=== PATIENT | male | born 1965 | race Caucasian/White ===

== ENCOUNTER 2018-01-24 23:58 | Emergency (ER) | payer MEDICARE, MEDICAID ==
[~2018-01-24] VITALS: Ht 172.7 cm; Wt 62.7 kg
[~2018-01-24 23:58] MED LIST: ATEN-169 PO; BUSP10TA11 PO; CITA-278 PO; HYDR-2382 PO; METH-603 PO; ZOC40T PO
[2018-01-25 01:06] LABS: ALANINE AMINOTRANSFERASE 60 U/L (12-78); ALBUMIN 3.9 G/DL (3.4-5.0); ALKALINE PHOSPHATASE 100 IU/L (46-116); ANION GAP 20 (8-16); ASPARTATE AMINO TRANSFERASE 42 U/L (10-37); BILIRUBIN,TOTAL 0.4 MG/DL (0.1-1.0); BLOOD UREA NITROGEN 8 MG/DL (7-18); BUN/CREATININE RATIO 7.3 (5.4-32.0); CALCIUM 8.8 MG/DL (8.5-10.1); CHLORIDE 103 MMOL/L (99-107); CREATININE 1.09 MG/DL (0.60-1.10); GLUCOSE 116 MG/DL (70-104); POTASSIUM 3.3 MMOL/L (3.5-5.1); SODIUM 144 MMOL/L (135-145); TOTAL PROTEIN 7.7 G/DL (6.4-8.2); eGFR 70 ML/MIN
[2018-01-25 01:14] LABS: ETHANOL 0.275 GM/DL (0.0-0.010)
[2018-01-25 01:16] LABS: BASOPHILS % (AUTO) 0.9 % (0-1); EOSINOPHILS % (AUTO) 0.3 % (0-6); HEMOGLOBIN 15.8 g/dl (14.0-17.9); LYMPHOCYTES % (AUTO) 39.7 % (21-51); MEAN CORPUSCULAR HGB CONC 32.8 % (33.0-36.5); MEAN CORPUSCULAR VOLUME 91.4 FL (78-98); MONOCYTES % (AUTO) 9.4 % (2-12); NEUTROPHILS % (AUTO) 49.7 % (42-75); PLATELET COUNT 314 X10'3 (140-440); RED BLOOD COUNT 5.25 X10'6 (4.70-6.10); RED CELL DISTRIBUTION WIDTH 12.5 % (11.5-14.5); WHITE BLOOD COUNT 8.1 X10'3 (4.5-11.0)
[2018-01-25 01:17] LABS: BASOPHILS # (AUTO) 0.1 X10'3 (0-0.2); LYMPHOCYTES # (AUTO) 3.2 X10'3 (1.1-4.8); MONOCYTES # (AUTO) 0.8 X10'3 (0-0.9)
[2018-01-25] MEDS ORDERED: potassium Cl 20 mEq SR tablet PO STA (01:26)
[2018-01-25 01:29] LABS: ACETAMINOPHEN < 2.0 UG/ML (10-30)
[2018-01-25 02:59] LABS: CLARITY,URINE CLEAR (Clear); COLOR,URINE YELLOW (Yellow); GLUCOSE, URINE NEGATIVE (Neg); KETONES,URINE 15 mg/dl (Neg); LEUKOCYTE ESTERASE ,URINE NEGATIVE (Neg); NITRITES, URINE NEGATIVE (Neg); OCCULT BLOOD,URINE MODERATE (Neg); PROTEIN,URINE 100 mg/dl (Neg); UA COLLECTION TYPE VOIDED; UROBILINOGEN,URINE 0.2 E.U/dL (0.2-1.0)
[2018-01-25 03:04] LABS: URINE AMPHETAMINE SCREEN NEGATIVE (Neg); URINE BARBITUATE SCREEN NEGATIVE (Neg); URINE BENZODIAZEPINES SCREEN POSITIVE (Neg); URINE CANNABINOID SCREEN NEGATIVE (Neg); URINE COCAINE SCREEN NEGATIVE (Neg); URINE METHADONE SCREEN NEGATIVE (Neg); URINE OPIATE SCREEN NEGATIVE (Neg); URINE PHENCYCLIDINE SCREEN NEGATIVE (Neg)
[2018-01-25] MEDS: LORazepam 1 MG tablet PO PRN ×3 (03:05→20:41)
[2018-01-25 03:09] LABS: BACTERIA,URINE FEW /HPF (Neg); MUCUS STRANDS MANY /LPF (Neg); SQUAMOUS EPITHELIAL CELL,UR FEW /LPF (FEW); WBC,URINE 0-4 /HPF (0-4)
[2018-01-25 03:10] LABS: FINE GRANULAR CAST 0-3 /LPF (NEGATIVE)
[2018-01-25] MEDS: ondansetron 4mg rapidly disintigrating tab PO PRN ×2 (06:51→10:56)
[2018-01-25] MEDS: gabapentin 300mg capsule PO SCH ×3 (07:21→20:41)
[2018-01-25] MEDS: citalopram 20mg tablet PO SCH (07:22)
[2018-01-25] MEDS: cloNIDine 0.1 mg tablet PO PRN ×2 (07:23→20:45)
[2018-01-25] MEDS: ziprasidone 20mg capsule PO PRN (11:09)
[2018-01-25 23:14] LABS: CLARITY,URINE CLEAR (Clear); COLOR,URINE YELLOW (Yellow); GLUCOSE, URINE NEGATIVE (Neg); KETONES,URINE TRACE mg/dl (Neg); LEUKOCYTE ESTERASE ,URINE NEGATIVE (Neg); NITRITES, URINE NEGATIVE (Neg); OCCULT BLOOD,URINE TRACE-LYSED (Neg); PROTEIN,URINE 30 mg/dl (Neg); UA COLLECTION TYPE FOLEY CATH; UROBILINOGEN,URINE 0.2 E.U/dL (0.2-1.0)
[2018-01-25 23:20] LABS: BACTERIA,URINE NONE SEEN /HPF (Neg); RBC,URINE 0-2 /HPF (0-2); SQUAMOUS EPITHELIAL CELL,UR NONE SEEN /LPF (FEW)
[2018-01-25 23:21] LABS: MUCUS STRANDS FEW /LPF (Neg); WBC,URINE 0-4 /HPF (0-4)
[2018-01-25] MEDS ORDERED: traZODone 50mg tablet PO SCH (23:45)
[2018-01-26] MEDS: LORazepam 1 MG tablet PO PRN ×3 (08:15→18:47)
[2018-01-26] MEDS: citalopram 20mg tablet PO SCH (08:17)
[2018-01-26] MEDS: gabapentin 300mg capsule PO SCH ×3 (08:17→21:00)
[2018-01-26] MEDS ORDERED: acetaminophen 325mg tablet PO PRN (09:25)
[2018-01-26] MEDS: ziprasidone 20mg capsule PO PRN ×2 (09:38→22:38)
[2018-01-26] MEDS: ibuprofen tablet 400 MG TABLET PO PRN ×2 (09:39→22:39)
[2018-01-26] MEDS: cloNIDine 0.1 mg tablet PO PRN (13:54)
[2018-01-26] MEDS ORDERED: LIDOcaine 2% 10ml TOPICAL JELLY (Urojet) MM ONE (18:55)
[2018-01-26] MEDS ORDERED: LORazepam 2 mg/ml vial IM ONE (18:55)
[2018-01-26] MEDS: traZODone 50mg tablet PO SCH (19:47)
[2018-01-27] MEDS: citalopram 20mg tablet PO SCH (07:30)
[2018-01-27] MEDS: LORazepam 1 MG tablet PO PRN ×3 (07:30→18:01)
[2018-01-27] MEDS: gabapentin 300mg capsule PO SCH ×3 (07:30→20:08)
[2018-01-27] MEDS: ibuprofen tablet 400 MG TABLET PO PRN (09:01)
[2018-01-27] MEDS ORDERED: tamsulosin 0.4mg capsule PO STA (11:29)
[2018-01-27] MEDS: traZODone 50mg tablet PO SCH (20:08)
[2018-01-27] MEDS ORDERED: tamsulosin 0.4mg capsule PO SCH (21:00)
[2018-01-27] MEDS: ziprasidone 20mg capsule PO PRN (21:41)
[2018-01-28] MEDS: gabapentin 300mg capsule PO SCH ×2 (07:59→12:42)
[2018-01-28] MEDS: LORazepam 1 MG tablet PO PRN ×3 (07:59→17:40)
[2018-01-28] MEDS: citalopram 20mg tablet PO SCH (07:59)
[2018-01-28] MEDS ORDERED: LIDOcaine 2% 10ml TOPICAL JELLY (Urojet) MM ONE (14:50)
[2018-01-28 18:22] VITALS: BP 122/81
[2018-01-28] MEDS ORDERED: LORA-269 PO (20:35)
[2018-01-28] MEDS ORDERED: TRAZ-219 PO (20:35)
[2018-01-28] MEDS ORDERED: FLO0.4C PO (20:35)
[2018-01-28] MEDS ORDERED: CLON-529 PO (20:35)
[2018-01-28] MEDS ORDERED: GABA-532 PO (20:35)
[2018-01-29 13:45] LABS: % FREE PSA 37.1 % (.); PSA, FREE 0.26 ng/mL
== END 2018-01-28 18:25 ==
LOC: ER 01-25
DX: R45.851 Suicidal ideations (principal); F10.129 Alcohol abuse with intoxication, unspecified; F32.9 Major depressive disorder, single episode, unspecified; R33.9 Retention of urine, unspecified; G89.29 Other chronic pain; Z87.891 Personal history of nicotine dependence; Z98.890 Other specified postprocedural states; Z79.899 Other long term (current) drug therapy; Y90.9 Presence of alcohol in blood, level not specified
CPT/HCPCS: 36415; 51702; 80053; 80305; 80320; 80329; 81001; 84153; 84154; 84443; 85025; 96372; 99285; A4353; J2060; A4357

== ENCOUNTER 2018-01-28 16:51 | Inpatient (IN) | payer MEDICARE, MEDICAID ==
[~2018-01-28] VITALS: Ht 172.7 cm; Wt 82.7 kg
[~2018-01-28 16:51] MED LIST changes: -ATEN-169 PO; -BUSP10TA11 PO; -HYDR-2382 PO; -METH-603 PO; -ZOC40T PO
[2018-01-28 19:40] VITALS: BP 117/88
[2018-01-28] MEDS ORDERED: LORA-269 PO (20:35)
[2018-01-28] MEDS ORDERED: GABA-532 PO (20:35)
[2018-01-28] MEDS ORDERED: TRAZ-219 PO (20:35)
[2018-01-28] MEDS ORDERED: FLO0.4C PO (20:35)
[2018-01-28] MEDS ORDERED: CLON-529 PO (20:35)
[2018-01-28] MEDS ORDERED: cloNIDine 0.1 mg tablet PO PRN (20:45)
[2018-01-28] MEDS ORDERED: traZODone 50mg tablet PO SCH (21:00)
[2018-01-28] MEDS: gabapentin 300mg capsule PO SCH (21:20)
[2018-01-29] MEDS ORDERED: acetaminophen 325mg tablet PO PRN ×2 (01:10)
[2018-01-29] MEDS ORDERED: mag hydrox/Alum hydrox/simeth 30ml oral suspension PO PRN (01:10)
[2018-01-29] MEDS ORDERED: magnesium hydroxide 30ml (MOM) UD suspension PO PRN (01:10)
[2018-01-29] MEDS: LORazepam 1 MG tablet PO PRN ×2 (06:49→17:01)
[2018-01-29 08:00] VITALS: BP 109/76
[2018-01-29] MEDS ORDERED: citalopram 20mg tablet PO SCH (08:00)
[2018-01-29] MEDS: tamsulosin 0.4mg capsule PO SCH (08:42)
[2018-01-29] MEDS: gabapentin 300mg capsule PO SCH ×3 (08:42→20:28)
[2018-01-29 10:08] LABS: CHOL/HDL RATIO 4.7 (0.00-4.99); CHOLESTEROL 203 MG/DL (0-200); HDL CHOLESTEROL 43 MG/DL (35-60); LDL CHOLESTEROL 129 MG/DL (50-100); TRIGLYCERIDES 204 MG/DL (20-135)
[2018-01-29 10:20] LABS: HEMOGLOBIN A1C 5.5 % (4.5-6.2)
[2018-01-29] MEDS: hydrOXYzine 25 MG tablet PO PRN (14:15)
[2018-01-29 19:44] VITALS: BP 121/77
[2018-01-29] MEDS: HYDROcodone/acetaminophen 5mg/325mg tablet PO PRN (20:29)
[2018-01-29] MEDS ORDERED: quetiapine 100mg tablet PO SCH (21:00)
[2018-01-30] MEDS: tamsulosin 0.4mg capsule PO SCH (07:33)
[2018-01-30] MEDS: gabapentin 300mg capsule PO SCH ×3 (07:33→21:48)
[2018-01-30] MEDS: LORazepam 1 MG tablet PO PRN ×2 (07:33→17:22)
[2018-01-30] MEDS: atorvastatin 20mg tablet PO SCH (07:33)
[2018-01-30] MEDS ORDERED: venlafaxine XR 37.5mg cap (Q24H) PO SCH (08:00)
[2018-01-30 08:06] VITALS: BP 132/82
[2018-01-30 08:42] LABS: ALBUMIN 3.5 G/DL (3.4-5.0); ANION GAP 7 (8-16); BLOOD UREA NITROGEN 9 MG/DL (7-18); BUN/CREATININE RATIO 8.9 (5.4-32.0); CALCIUM 9.1 MG/DL (8.5-10.1); CHLORIDE 104 MMOL/L (99-107); CREATININE 1.01 MG/DL (0.60-1.10); GLUCOSE 97 MG/DL (70-104); POTASSIUM 4.5 MMOL/L (3.5-5.1); SODIUM 144 MMOL/L (135-145); TOTAL CARBON DIOXIDE 33.1 MMOL/L (24-32); eGFR 77 ML/MIN
[2018-01-30] MEDS: HYDROcodone/acetaminophen 5mg/325mg tablet PO PRN (09:34)
[2018-01-30] MEDS: hydrOXYzine 25 MG tablet PO PRN (10:52)
[2018-01-30 19:00] VITALS: BP 126/72
[2018-01-30] MEDS ORDERED: HYDROcodone/acetaminophen 5mg/325mg tablet PO PRN (19:55)
[2018-01-30] MEDS: HYDROcodone/acetaminophen 10/325mg tab PO PRN (20:08)
[2018-01-30] MEDS ORDERED: QUEtiapine 25mg tablet PO SCH (21:00)
[2018-01-31] MEDS: atorvastatin 20mg tablet PO SCH (07:51)
[2018-01-31] MEDS: tamsulosin 0.4mg capsule PO SCH (07:51)
[2018-01-31] MEDS: venlafaxine XR 75mg capsule (Q24H) PO SCH (07:51)
[2018-01-31] MEDS: LORazepam 1 MG tablet PO PRN (07:52)
[2018-01-31] MEDS: gabapentin 300mg capsule PO SCH ×3 (07:52→20:55)
[2018-01-31 08:20] VITALS: BP 152/84
[2018-01-31] MEDS: HYDROcodone/acetaminophen 10/325mg tab PO PRN ×2 (10:36→19:56)
[2018-01-31] MEDS: hydrOXYzine 25 MG tablet PO PRN ×2 (12:35→20:56)
[2018-01-31 19:00] VITALS: BP 100/61
[2018-01-31] MEDS: QUEtiapine 25mg tablet PO SCH (20:55)
[2018-01-31] MEDS: traZODone 50mg tablet PO PRN (20:56)
[2018-02-01] MEDS: venlafaxine XR 75mg capsule (Q24H) PO SCH (07:32)
[2018-02-01] MEDS: gabapentin 300mg capsule PO SCH ×3 (07:32→21:22)
[2018-02-01] MEDS: atorvastatin 20mg tablet PO SCH (07:32)
[2018-02-01] MEDS: tamsulosin 0.4mg capsule PO SCH (07:32)
[2018-02-01] MEDS: LORazepam 1 MG tablet PO PRN (07:33)
[2018-02-01 07:37] VITALS: BP 118/73
[2018-02-01] MEDS: HYDROcodone/acetaminophen 10/325mg tab PO PRN ×3 (10:35→22:22)
[2018-02-01] MEDS: hydrOXYzine 25 MG tablet PO PRN ×2 (10:35→21:22)
[2018-02-01 19:00] VITALS: BP 99/72
[2018-02-01] MEDS: traZODone 50mg tablet PO PRN (21:22)
[2018-02-01] MEDS: QUEtiapine 25mg tablet PO SCH (21:22)
[2018-02-02] MEDS: LORazepam 1 MG tablet PO PRN ×2 (07:30→17:13)
[2018-02-02] MEDS: HYDROcodone/acetaminophen 10/325mg tab PO PRN ×3 (07:31→20:06)
[2018-02-02] MEDS: atorvastatin 20mg tablet PO SCH (07:31)
[2018-02-02] MEDS: tamsulosin 0.4mg capsule PO SCH (07:31)
[2018-02-02] MEDS: venlafaxine XR 75mg capsule (Q24H) PO SCH (07:31)
[2018-02-02] MEDS: gabapentin 300mg capsule PO SCH ×3 (07:31→21:44)
[2018-02-02 08:00] VITALS: BP 109/75
[2018-02-02] MEDS: hydrOXYzine 25 MG tablet PO PRN ×2 (12:33→21:45)
[2018-02-02 19:00] VITALS: BP 102/76
[2018-02-02] MEDS: QUEtiapine 25mg tablet PO SCH (21:44)
[2018-02-02] MEDS: traZODone 50mg tablet PO PRN (21:45)
[2018-02-03] MEDS: HYDROcodone/acetaminophen 10/325mg tab PO PRN ×3 (07:15→20:45)
[2018-02-03] MEDS: atorvastatin 20mg tablet PO SCH (07:15)
[2018-02-03] MEDS: gabapentin 300mg capsule PO SCH ×3 (07:15→21:28)
[2018-02-03] MEDS: venlafaxine XR 75mg capsule (Q24H) PO SCH (07:15)
[2018-02-03] MEDS: tamsulosin 0.4mg capsule PO SCH (07:15)
[2018-02-03] MEDS: LORazepam 1 MG tablet PO PRN ×2 (07:15→17:02)
[2018-02-03 08:00] VITALS: BP 105/75
[2018-02-03] MEDS: hydrOXYzine 25 MG tablet PO PRN ×2 (12:16→21:30)
[2018-02-03 19:30] VITALS: BP 111/69
[2018-02-03] MEDS: QUEtiapine 25mg tablet PO SCH (21:28)
[2018-02-03] MEDS: traZODone 50mg tablet PO PRN (21:30)
[2018-02-04] MEDS: LORazepam 1 MG tablet PO PRN ×2 (07:42→19:26)
[2018-02-04] MEDS: atorvastatin 20mg tablet PO SCH (07:42)
[2018-02-04] MEDS: tamsulosin 0.4mg capsule PO SCH (07:42)
[2018-02-04] MEDS: HYDROcodone/acetaminophen 10/325mg tab PO PRN ×3 (07:42→20:27)
[2018-02-04] MEDS: gabapentin 300mg capsule PO SCH ×3 (07:42→21:30)
[2018-02-04] MEDS: venlafaxine XR 75mg capsule (Q24H) PO SCH (07:42)
[2018-02-04 08:11] VITALS: BP 117/74
[2018-02-04] MEDS: hydrOXYzine 25 MG tablet PO PRN (12:00)
[2018-02-04 19:56] VITALS: BP 123/80
[2018-02-04] MEDS ORDERED: quetiapine 100mg tablet PO SCH (21:00)
[2018-02-05] MEDS: HYDROcodone/acetaminophen 10/325mg tab PO PRN ×3 (07:42→20:35)
[2018-02-05] MEDS: tamsulosin 0.4mg capsule PO SCH (07:42)
[2018-02-05] MEDS: LORazepam 1 MG tablet PO PRN ×2 (07:42→17:17)
[2018-02-05] MEDS: venlafaxine XR 75mg capsule (Q24H) PO SCH (07:43)
[2018-02-05] MEDS: atorvastatin 20mg tablet PO SCH (07:43)
[2018-02-05] MEDS: gabapentin 300mg capsule PO SCH ×3 (07:43→21:38)
[2018-02-05 08:00] VITALS: BP 115/72
[2018-02-05] MEDS: hydrOXYzine 25 MG tablet PO PRN (10:52)
[2018-02-05 20:00] VITALS: BP 111/65
[2018-02-05] MEDS ORDERED: quetiapine 100mg tablet PO ONE (21:50)
[2018-02-06] MEDS: atorvastatin 20mg tablet PO SCH (07:37)
[2018-02-06] MEDS: venlafaxine XR 75mg capsule (Q24H) PO SCH (07:37)
[2018-02-06] MEDS: tamsulosin 0.4mg capsule PO SCH (07:38)
[2018-02-06] MEDS: gabapentin 300mg capsule PO SCH ×3 (07:38→21:33)
[2018-02-06] MEDS: QUEtiapine 25mg tablet PO PRN ×3 (07:38→19:45)
[2018-02-06] MEDS: HYDROcodone/acetaminophen 10/325mg tab PO PRN ×3 (07:38→19:45)
[2018-02-06 08:09] VITALS: BP 119/82
[2018-02-06 19:33] VITALS: BP 124/75
[2018-02-06] MEDS ORDERED: quetiapine 100mg tablet PO SCH (21:00)
[2018-02-06] MEDS: docusate sod 100mg capsule PO SCH (21:33)
[2018-02-06] MEDS: quetiapine 100mg tablet PO SCH (21:34)
[2018-02-07] MEDS: QUEtiapine 25mg tablet PO PRN ×3 (06:55→15:37)
[2018-02-07] MEDS: HYDROcodone/acetaminophen 10/325mg tab PO PRN ×3 (06:55→20:39)
[2018-02-07] MEDS: docusate sod 100mg capsule PO SCH ×2 (07:58→20:13)
[2018-02-07] MEDS: venlafaxine XR 75mg capsule (Q24H) PO SCH (07:58)
[2018-02-07] MEDS: atorvastatin 20mg tablet PO SCH (07:58)
[2018-02-07] MEDS: tamsulosin 0.4mg capsule PO SCH (07:58)
[2018-02-07] MEDS: gabapentin 300mg capsule PO SCH ×3 (07:58→20:13)
[2018-02-07 08:27] VITALS: BP 120/74
[2018-02-07 20:00] VITALS: BP 100/61
[2018-02-07] MEDS: quetiapine 100mg tablet PO SCH (20:14)
[2018-02-08] MEDS: QUEtiapine 25mg tablet PO PRN ×3 (07:00→16:15)
[2018-02-08] MEDS: HYDROcodone/acetaminophen 10/325mg tab PO PRN ×2 (07:00→14:35)
[2018-02-08] MEDS: venlafaxine XR 75mg capsule (Q24H) PO SCH (08:03)
[2018-02-08] MEDS: gabapentin 300mg capsule PO SCH ×3 (08:03→20:33)
[2018-02-08] MEDS: docusate sod 100mg capsule PO SCH ×2 (08:03→20:34)
[2018-02-08] MEDS: tamsulosin 0.4mg capsule PO SCH (08:03)
[2018-02-08] MEDS: atorvastatin 20mg tablet PO SCH (08:03)
[2018-02-08] MEDS: vitamin D (cholecalciferol) 1,000 unit tablet PO SCH (08:04)
[2018-02-08 08:07] VITALS: BP 111/75
[2018-02-08 20:00] VITALS: BP 115/83
[2018-02-08] MEDS: quetiapine 100mg tablet PO SCH (20:34)
[2018-02-09] MEDS: venlafaxine XR 75mg capsule (Q24H) PO SCH (07:41)
[2018-02-09] MEDS: vitamin D (cholecalciferol) 1,000 unit tablet PO SCH (07:41)
[2018-02-09] MEDS: tamsulosin 0.4mg capsule PO SCH (07:41)
[2018-02-09] MEDS: atorvastatin 20mg tablet PO SCH (07:41)
[2018-02-09] MEDS: gabapentin 300mg capsule PO SCH ×3 (07:41→20:56)
[2018-02-09] MEDS: docusate sod 100mg capsule PO SCH ×2 (07:41→20:56)
[2018-02-09] MEDS: HYDROcodone/acetaminophen 10/325mg tab PO PRN ×3 (07:42→20:56)
[2018-02-09] MEDS: QUEtiapine 25mg tablet PO PRN ×3 (07:42→16:46)
[2018-02-09 08:00] VITALS: BP 108/79
[2018-02-09 19:00] VITALS: BP 101/71
[2018-02-09] MEDS: quetiapine 100mg tablet PO SCH (20:57)
[2018-02-10] MEDS: HYDROcodone/acetaminophen 10/325mg tab PO PRN ×3 (06:56→20:27)
[2018-02-10] MEDS: QUEtiapine 25mg tablet PO PRN ×2 (06:58→12:12)
[2018-02-10 08:00] VITALS: BP 113/75
[2018-02-10] MEDS: vitamin D (cholecalciferol) 1,000 unit tablet PO SCH (08:13)
[2018-02-10] MEDS: docusate sod 100mg capsule PO SCH ×2 (08:13→21:31)
[2018-02-10] MEDS: tamsulosin 0.4mg capsule PO SCH (08:13)
[2018-02-10] MEDS: atorvastatin 20mg tablet PO SCH (08:13)
[2018-02-10] MEDS: gabapentin 300mg capsule PO SCH ×3 (08:13→21:32)
[2018-02-10] MEDS: venlafaxine XR 75mg capsule (Q24H) PO SCH (08:14)
[2018-02-10 20:00] VITALS: BP 116/61
[2018-02-10] MEDS: quetiapine 100mg tablet PO SCH (21:32)
[2018-02-11] MEDS: quetiapine 100mg tablet PO PRN ×3 (06:46→19:56)
[2018-02-11] MEDS: HYDROcodone/acetaminophen 10/325mg tab PO PRN ×3 (06:48→19:57)
[2018-02-11] MEDS: atorvastatin 20mg tablet PO SCH (07:50)
[2018-02-11] MEDS: tamsulosin 0.4mg capsule PO SCH (07:50)
[2018-02-11] MEDS: gabapentin 300mg capsule PO SCH ×3 (07:50→21:07)
[2018-02-11] MEDS: docusate sod 100mg capsule PO SCH ×2 (07:50→21:07)
[2018-02-11] MEDS: vitamin D (cholecalciferol) 1,000 unit tablet PO SCH (07:51)
[2018-02-11] MEDS: venlafaxine XR 75mg capsule (Q24H) PO SCH (07:51)
[2018-02-11 08:00] VITALS: BP 116/79
[2018-02-11] MEDS: folic acid 1mg tablet PO SCH (17:52)
[2018-02-11 20:00] VITALS: BP 122/77
[2018-02-11] MEDS: quetiapine 100mg tablet PO SCH (21:06)
[2018-02-11] MEDS: thiamine 100mg tablet PO SCH (21:07)
[2018-02-12] MEDS: HYDROcodone/acetaminophen 10/325mg tab PO PRN ×3 (07:14→20:11)
[2018-02-12] MEDS: quetiapine 100mg tablet PO PRN ×3 (07:14→17:15)
[2018-02-12] MEDS: folic acid 1mg tablet PO SCH (07:47)
[2018-02-12] MEDS: gabapentin 300mg capsule PO SCH ×3 (07:47→21:15)
[2018-02-12] MEDS: atorvastatin 20mg tablet PO SCH (07:47)
[2018-02-12] MEDS: venlafaxine XR 75mg capsule (Q24H) PO SCH (07:47)
[2018-02-12] MEDS: thiamine 100mg tablet PO SCH ×2 (07:47→21:15)
[2018-02-12] MEDS: docusate sod 100mg capsule PO SCH ×2 (07:47→21:15)
[2018-02-12] MEDS: vitamin D (cholecalciferol) 1,000 unit tablet PO SCH (07:47)
[2018-02-12] MEDS: tamsulosin 0.4mg capsule PO SCH (07:47)
[2018-02-12 08:00] VITALS: BP 108/69
[2018-02-12 19:55] VITALS: BP 112/78
[2018-02-12] MEDS: quetiapine 100mg tablet PO SCH (21:16)
[2018-02-13] MEDS: quetiapine 100mg tablet PO PRN ×3 (06:59→16:55)
[2018-02-13] MEDS: HYDROcodone/acetaminophen 10/325mg tab PO PRN ×3 (07:00→19:30)
[2018-02-13] MEDS: docusate sod 100mg capsule PO SCH ×2 (07:55→21:43)
[2018-02-13] MEDS: tamsulosin 0.4mg capsule PO SCH (07:55)
[2018-02-13] MEDS: folic acid 1mg tablet PO SCH (07:55)
[2018-02-13] MEDS: gabapentin 300mg capsule PO SCH ×3 (07:56→21:43)
[2018-02-13] MEDS: venlafaxine XR 75mg capsule (Q24H) PO SCH (07:56)
[2018-02-13] MEDS: vitamin D (cholecalciferol) 1,000 unit tablet PO SCH (07:56)
[2018-02-13] MEDS: atorvastatin 20mg tablet PO SCH (07:56)
[2018-02-13] MEDS: thiamine 100mg tablet PO SCH ×2 (07:56→21:43)
[2018-02-13 08:00] VITALS: BP 112/79
[2018-02-13 19:00] VITALS: BP 102/74
[2018-02-13] MEDS: quetiapine 100mg tablet PO SCH (21:44)
[2018-02-14] MEDS: vitamin D (cholecalciferol) 1,000 unit tablet PO SCH (07:39)
[2018-02-14] MEDS: thiamine 100mg tablet PO SCH ×2 (07:39→20:56)
[2018-02-14] MEDS: atorvastatin 20mg tablet PO SCH (07:39)
[2018-02-14] MEDS: docusate sod 100mg capsule PO SCH ×2 (07:39→20:56)
[2018-02-14] MEDS: tamsulosin 0.4mg capsule PO SCH (07:39)
[2018-02-14] MEDS: gabapentin 300mg capsule PO SCH ×3 (07:40→20:56)
[2018-02-14] MEDS: folic acid 1mg tablet PO SCH (07:40)
[2018-02-14] MEDS: quetiapine 100mg tablet PO PRN ×4 (07:47→20:02)
[2018-02-14] MEDS: HYDROcodone/acetaminophen 10/325mg tab PO PRN ×3 (07:47→20:02)
[2018-02-14] MEDS: venlafaxine XR 75mg capsule (Q24H) PO SCH (07:48)
[2018-02-14 08:02] VITALS: BP 113/72
[2018-02-14 19:00] VITALS: BP 110/80
[2018-02-14] MEDS: quetiapine 100mg tablet PO SCH (21:35)
[2018-02-15 07:26] VITALS: BP 113/69
[2018-02-15] MEDS: docusate sod 100mg capsule PO SCH ×2 (07:29→20:15)
[2018-02-15] MEDS: thiamine 100mg tablet PO SCH ×2 (07:29→20:15)
[2018-02-15] MEDS: venlafaxine XR 75mg capsule (Q24H) PO SCH (07:29)
[2018-02-15] MEDS: vitamin D (cholecalciferol) 1,000 unit tablet PO SCH (07:30)
[2018-02-15] MEDS: tamsulosin 0.4mg capsule PO SCH (07:30)
[2018-02-15] MEDS: quetiapine 100mg tablet PO PRN ×3 (07:30→16:34)
[2018-02-15] MEDS: atorvastatin 20mg tablet PO SCH (07:30)
[2018-02-15] MEDS: gabapentin 300mg capsule PO SCH ×3 (07:30→20:15)
[2018-02-15] MEDS: folic acid 1mg tablet PO SCH (07:30)
[2018-02-15] MEDS: HYDROcodone/acetaminophen 10/325mg tab PO PRN (07:31)
[2018-02-15 19:00] VITALS: BP 117/70
[2018-02-15] MEDS ORDERED: buprenorphine/naloxone 2-0.5mg sublingual tablet SL ONE ×2 (19:00→20:05)
[2018-02-15] MEDS: quetiapine 100mg tablet PO SCH (20:15)
[2018-02-16] MEDS: quetiapine 100mg tablet PO PRN ×3 (07:03→16:51)
[2018-02-16 07:42] VITALS: BP 100/67
[2018-02-16] MEDS: docusate sod 100mg capsule PO SCH ×2 (08:06→21:22)
[2018-02-16] MEDS: gabapentin 300mg capsule PO SCH ×3 (08:07→21:22)
[2018-02-16] MEDS: thiamine 100mg tablet PO SCH ×2 (08:07→20:00)
[2018-02-16] MEDS: tamsulosin 0.4mg capsule PO SCH (08:07)
[2018-02-16] MEDS: vitamin D (cholecalciferol) 1,000 unit tablet PO SCH (08:07)
[2018-02-16] MEDS: venlafaxine XR 75mg capsule (Q24H) PO SCH (08:07)
[2018-02-16] MEDS: folic acid 1mg tablet PO SCH (08:07)
[2018-02-16] MEDS: atorvastatin 20mg tablet PO SCH (08:07)
[2018-02-16] MEDS ORDERED: buprenorphine/naloxone 2-0.5mg sublingual tablet SL ONE (14:00)
[2018-02-16 20:00] VITALS: BP 116/74
[2018-02-16] MEDS: quetiapine 100mg tablet PO SCH (21:23)
[2018-02-17] MEDS: docusate sod 100mg capsule PO SCH ×2 (07:44→20:51)
[2018-02-17] MEDS: gabapentin 300mg capsule PO SCH ×3 (07:44→20:51)
[2018-02-17] MEDS: atorvastatin 20mg tablet PO SCH (07:44)
[2018-02-17] MEDS: vitamin D (cholecalciferol) 1,000 unit tablet PO SCH (07:44)
[2018-02-17] MEDS: tamsulosin 0.4mg capsule PO SCH (07:45)
[2018-02-17] MEDS: venlafaxine XR 75mg capsule (Q24H) PO SCH (07:45)
[2018-02-17] MEDS: thiamine 100mg tablet PO SCH ×2 (07:45→20:51)
[2018-02-17] MEDS: folic acid 1mg tablet PO SCH (07:45)
[2018-02-17] MEDS: quetiapine 100mg tablet PO PRN ×2 (07:58→15:59)
[2018-02-17 08:00] VITALS: BP 114/75
[2018-02-17] MEDS ORDERED: loratadine 10mg tablet PO ONE (12:25)
[2018-02-17] MEDS: buprenorphine/naloxone 2-0.5mg sublingual tablet SL SCH (13:24)
[2018-02-17 20:00] VITALS: BP 112/74
[2018-02-17] MEDS: quetiapine 100mg tablet PO SCH (20:51)
[2018-02-18] MEDS: thiamine 100mg tablet PO SCH (07:32)
[2018-02-18] MEDS: folic acid 1mg tablet PO SCH (07:33)
[2018-02-18] MEDS: docusate sod 100mg capsule PO SCH (07:33)
[2018-02-18] MEDS: quetiapine 100mg tablet PO PRN ×2 (07:33→13:58)
[2018-02-18] MEDS: atorvastatin 20mg tablet PO SCH (07:33)
[2018-02-18] MEDS: tamsulosin 0.4mg capsule PO SCH (07:33)
[2018-02-18] MEDS: venlafaxine XR 75mg capsule (Q24H) PO SCH (07:33)
[2018-02-18] MEDS: gabapentin 300mg capsule PO SCH ×2 (07:33→13:58)
[2018-02-18] MEDS: vitamin D (cholecalciferol) 1,000 unit tablet PO SCH (07:34)
[2018-02-18] MEDS: buprenorphine/naloxone 2-0.5mg sublingual tablet SL SCH (07:34)
[2018-02-18 07:56] VITALS: BP 110/66
[2018-02-18] MEDS ORDERED: loratadine 10mg tablet PO SCH (08:00)
[2018-02-18 08:33] LABS: BASOPHILS % (AUTO) 0.6 % (0-1); EOSINOPHILS # (AUTO) 0.3 X10'3 (0-0.9); EOSINOPHILS % (AUTO) 4.1 % (0-6); HEMATOCRIT 37.3 % (42.0-52.0); HEMOGLOBIN 12.6 g/dl (14.0-17.9); LYMPHOCYTES # (AUTO) 2.4 X10'3 (1.1-4.8); LYMPHOCYTES % (AUTO) 30.9 % (21-51); MEAN CORPUSCULAR HEMOGLOBIN 30.4 PG (27.0-31.0); MEAN CORPUSCULAR HGB CONC 33.7 % (33.0-36.5); MEAN CORPUSCULAR VOLUME 90.3 FL (78-98); MEAN PLATELET VOLUME 7.2 FL (7.4-10.4); MONOCYTES # (AUTO) 0.5 X10'3 (0-0.9); MONOCYTES % (AUTO) 6.7 % (2-12); NEUTROPHILS # (AUTO) 4.5 X10'3 (1.8-7.7); NEUTROPHILS % (AUTO) 57.7 % (42-75); PLATELET COUNT 401 X10'3 (140-440); RED BLOOD COUNT 4.13 X10'6 (4.70-6.10); RED CELL DISTRIBUTION WIDTH 13.4 % (11.5-14.5); WHITE BLOOD COUNT 7.8 X10'3 (4.5-11.0)
[2018-02-18 08:53] LABS: ALANINE AMINOTRANSFERASE 19 U/L (12-78); ALBUMIN 3.4 G/DL (3.4-5.0); ALBUMIN/GLOBULIN RATIO 0.9 (1.1-1.5); ALKALINE PHOSPHATASE 93 IU/L (46-116); ANION GAP 7 (8-16); ASPARTATE AMINO TRANSFERASE 17 U/L (10-37); BILIRUBIN,TOTAL 0.2 MG/DL (0.1-1.0); BLOOD UREA NITROGEN 11 MG/DL (7-18); BUN/CREATININE RATIO 11.3 (5.4-32.0); CALCIUM 9.5 MG/DL (8.5-10.1); CHLORIDE 101 MMOL/L (99-107); CHOL/HDL RATIO 4.5 (0.00-4.99); CHOLESTEROL 163 MG/DL (0-200); CREATININE 0.97 MG/DL (0.60-1.10); GLUCOSE 82 MG/DL (70-104); HDL CHOLESTEROL 36 MG/DL (35-60); LDL CHOLESTEROL 83 MG/DL (50-100); POTASSIUM 3.8 MMOL/L (3.5-5.1); SODIUM 141 MMOL/L (135-145); TOTAL CARBON DIOXIDE 33.1 MMOL/L (24-32); TOTAL PROTEIN 7.3 G/DL (6.4-8.2); TRIGLYCERIDES 342 MG/DL (20-135); eGFR 81 ML/MIN
[2018-02-18] MEDS ORDERED: ATOR20TA66 PO (14:16)
[2018-02-18] MEDS ORDERED: COL100C PO (14:16)
[2018-02-18] MEDS ORDERED: VENL75CA55 PO (14:16)
[2018-02-18] MEDS ORDERED: QUET100T33 PO ×2 (14:16)
[2018-02-18] MEDS ORDERED: CHOL100046 PO (14:16)
[2018-02-18] MEDS ORDERED: BUPR1FIL3 SL (14:16)
[2018-02-18] MEDS ORDERED: LORA10TA65 PO (14:16)
[2018-02-18] MEDS ORDERED: OMEG1CAP PO (14:16)
[2018-02-18] MEDS ORDERED: omega-3 acid ethyl esters 1GM capsule PO SCH (20:00)
== END 2018-02-18 16:00 | disposition short-term general hospital (02) | DRG 885 ==
LOC: ADULT MH 16:51
PROVIDERS: ADMIT Psychiatry & Neurology Psychiatry; ATTEND Psychiatry & Neurology Psychiatry
DX: F33.2 Major depressive disorder, recurrent severe without psychotic features (principal); R45.851 Suicidal ideations; N13.8 Other obstructive and reflux uropathy; F40.00 Agoraphobia, unspecified; E78.00 Pure hypercholesterolemia, unspecified; E78.1 Pure hyperglyceridemia; E78.5 Hyperlipidemia, unspecified; E87.6 Hypokalemia; F10.229 Alcohol dependence with intoxication, unspecified; F41.1 Generalized anxiety disorder; G47.00 Insomnia, unspecified; Y90.0 Blood alcohol level of less than 20 mg/100 ml; J31.0 Chronic rhinitis; G89.4 Chronic pain syndrome; G62.9 Polyneuropathy, unspecified; I10 Essential (primary) hypertension; M41.9 Scoliosis, unspecified; M81.0 Age-related osteoporosis without current pathological fracture; M46.90 Unspecified inflammatory spondylopathy, site unspecified; N40.1 Benign prostatic hyperplasia with lower urinary tract symptoms; Z79.899 Other long term (current) drug therapy; Z81.8 Family history of other mental and behavioral disorders; Z23 Encounter for immunization
CPT/HCPCS: 36415; 80048; 80053; 80061; 83036; 85025; 87070; 99285; A4357; Q0177; Q2037